=== PATIENT | male | born 1950 | race Caucasian/White ===

== ENCOUNTER → 2016-07-03 | Day surgery (SDC) | payer MEDICARE, OTHER ==
[~2016-07-03] VITALS: Ht 185.4 cm; Wt 84.9 kg
[~2016-07-03] MED LIST: ACETAMINOPHEN 1000 MG/100 ML VIAL IV ONE; ACETAMINOPHEN/HYDROcodone 325 MG/7.5 MG TAB PO PRN; AMBI10TA PO; BETAMETHASONE SOD PHOS/ACETATE SUSP 30 MG/5 ML VIAL ONE; BUPIVACAINE/EPINEPHRINE 0.25% PF 30 ML VIAL ONE; CHOL50008 PO; COQ-100C2 PO; CYAN25003 SL; DEXAMETHASONE SOD PHOS 4 MG/ML VIAL ONE; DO NOT ADM ANY ANTICOAGULANT DRUGS XX PRN; GELATIN 12 MM/7 MM FOAM ONE; GENTAMICIN SULFATE 80 MG/2 ML VIAL ONE; HYDR-3288 PO; INSULIN HUMAN REGULAR 1,000 UNITS/10 ML VIAL SQ PRN; KETOROLAC TROMETHAMINE 60 MG/2 ML (IM) VIAL IM ONE; LACTATED RINGER'S 1000 ML INJ 1,000 ML ONE; LACTATED RINGER'S 1000 ML IV SCH; LIDOCAINE 1%/EPINEPHrine 1:100,000 SOLN 30 ML VIAL ONE; LIVA2TAB PO; LOSA50TA PO; MAGN500T4 PO; METOPROLOL TARTRATE 25 MG TAB PO PRN; MIDAZOLAM HCL 2 MG/2 ML VIAL ONE; MORPHINE SULFATE 4 MG/ML INJ IV PUSH PRN; NEXI20CA PO; OMEG12002 PO; ONDANSETRON HCL 4 MG/2 ML VIAL IV PUSH ONE; PHENYLEPH/NS 1000 MCG/10 ML SYR IV ONE; POVIDONE IODINE 7.5% SCRUB 118 ML BOTTLE TOP SCH; PROPOFOL 200 MG/20 ML AMP IV ONE; SODIUM CHLOR 0.9% 1000 ML INJ 1,000 ML IV SCH; SODIUM CHLORID 0.9% 500 ML IV SCH; SODIUM CHLORIDE 5 ML FLUSH BID IVF SCH; SODIUM CHLORIDE 5 ML FLUSH PRN IVF; TRAM50TA PO; ceFAZolin 2 GM PREMIX 50 ML IV SCH; ePHEDrine/NS 50 MG/5 ML SYR IV ONE; fentaNYL CITRATE 250 MCG/5 ML AMP ONE
--- NOTE | 2016-07-03 07:55 | MH ---
cc: APARNA ARIAS DATE OF ADMISSION: 07/03/2016 ADMISSION DIAGNOSIS Herniated nucleus pulposus lumbar spine and lumbar fracture. HISTORY This is a 66 year-old male with significant injury to his back. He sustained a compression fracture at the L3 level, but also has evidence of a disc herniation eccentric to the left extending above the disc space with a severe left L3 radiculopathy. The patient is having severe back, hip and leg pain with severe weakness of the left leg. He presents for surgical treatment. PAST MEDICAL HISTORY, SOCIAL HISTORY, FAMILY HISTORY, REVIEW OF SYSTEMS See attached notes. PHYSICAL EXAMINATION GENERAL: This is a 66-year-old male in moderate distress with his back, left hip and leg. HEENT: Normocephalic, atraumatic. Pupils equal, round and reactive to light and accommodation. Extraocular motions intact. NECK: Supple. CHEST: Clear. HEART: Regular rate and rhythm. ABDOMEN: Soft and nontender. Normoactive bowel sounds. MUSCULOSKELETAL: Thoracolumbar spine restricted motion, pain with range of motion. Straight leg raising is positive on the left. There is moderate weakness of the left quadriceps compared to the right. Sensation is altered in the left thigh. Mild weakness also sustained of the left anterior tibialis. INVESTIGATIVE STUDIES Shows evidence of a large disc herniation centrally into the left L2-3 creating significant left L3 stenosis and lateral recess stenosis. There may be some compression of the exiting L2 nerve root as the disc extended above the disc space, as well as below the disc space. There is evidence of a recent fracture at the L3 level with superior end plate compression. IMPRESSION 1. Herniated nucleus pulposus L2-3 central, left, extruded. 2. Compression fracture of L3. PLAN Kyphoplasty of L3, lumbar laminectomy L2, L3, lateral recess decompression, resection of herniated nucleus pulposus, use of dilation port and microscope. CONSENT The risks with surgery including, infection, bleeding, loss of motion, continued pain, need for further surgery, neurologic and vascular injury, the patient understands these issues and wishes to press on with surgery as outlined above. MD ARACELI Lyons/ANDREAS /8:24 PM /8:20 AM
[2016-07-03 11:08] VITALS: BP 177/89; PULSE 81; RESP 18; TEMP 98; O2SAT 98
--- NOTE | 2016-07-03 16:57 | PD.OP ---
cc: Eric Vila MD Operative Report Date of Surgery: Jul 03, 2016 Preoperative Diagnosis: Herniated nucleus pulposis L2-3, left, sequestered. Lumbar spinal stenosis, L2-3. Status post lumbar laminectomy L3 4, L4 5, L5-S1, remote. Compression fracture of L3, subacute Postoperative Diagnosis: Same Procedure: Bilateral lumbar laminectomy from the left L2, L3 with lateral recess decompression and resection herniated nucleus pulposis. Kyphoplasty of L3. Use of dilation port and microscope Anesthesia: Gen. Surgeon: Eric Vila Site Lead(s): MYLES Young Operation and Findings: EBL: 75 cc INDICATION: Patient is a 66-year-old male who fell last summer and has been having progressive back pain since that time. He fell again in May and developed acute onset of weakness into the left leg in addition to his low back pain. He's had 3 previous lumbar laminectomies of the low lumbar spine. Studies show evidence of a subacute to early chronic compression fracture of L3 and evidence of a large sequestered disc herniation to the left at and below the disc space at L2-3 with evidence of a high-grade lateral recess stenosis. The patient's developing significant weakness into the left leg. He presents for surgical treatment NOTE: Camila Young PA-C was present for the entire surgical procedure as my assistant toddler teacher. In my medical opinion her skill and care was necessary for the proper management of this patient. PROCEDURE: The patient was brought to the operating room and anesthetized in the supine position. The patient was rolled to a prone position on a Riley frame on a Maninder table. All pressure points were protected in the back was scrubbed with alcohol followed by Hibiclens followed by ChloraPrep and draped sterilely. A timeout was done and antibiotics were given. AP and lateral radiographic images were used to identify the proper levels and perform skin markings. We started from the left side at the 23 level. A paramedian incision was made and an off-midline fascial incision was made. A dilating system was placed down to the interlaminar space and held provisionally to the side of the table. The microscope was brought into the field. A high-speed bur under the microscope was used to perform a partial bilateral laminectomy from that side. A lateral recess decompression extending below the disc space was accomplished using straight and angled Kerrison punches. A partial medial facetectomy was accomplished. There was evidence of a large sequestered disc herniation adjacent to the pedicle of L3 creating significant left L3 nerve root compression. We extended across midline for a partial bilateral decompression which was now very satisfactory. There was a moderate to high-grade spinal stenosis in addition to the disc herniation at that level. The crossing and exiting nerve roots were completely decompressed. The wound was irrigated copiously. A small piece of Gelfoam with Celestone was placed into the epidural space. Hemostasis was controlled. The deep fascia was approximated with interrupted 0 Vicryl. Under biplanar fluoroscopy, the s0cket system was utilized for the kyphoplasty. A separate fascial incision was made. Approaching from the left side, an awl was placed through the left L3 pedicle and extending to midline. We placed a separate cannula from the right side through separate fascial incision. A balloon was used to help create a cavity and correct the deformity. This appeared to be a subacute to early chronic fracture. On the back table methylmethacrylate was mixed. After approximately 11 minutes it was injected. We had a good vertebral body fill without evidence of extravasation. The cement was allowed to harden. The tubes were removed. The wound was irrigated and anesthetized. The subcutaneous tissue was sutured with 2-0 Vicryl suture and skin with running intradermal 3-0 Vicryl followed by Dermabond. A field block with local anesthesia was utilized. A sterile dressing was applied. The sponge count and needle counts and instrument counts were all correct. The patient tolerated the procedure well as taken to the recovery room in satisfactory condition. FINDINGS: There was evidence of a subacute to early chronic fracture of L3. There was a severe high-grade stenosis at L2-3 extending to midline. At the end of the procedure, there is no evidence of complication. Eric Vila MD Jul 03, 2016 16:57
--- NOTE | 2016-07-03 17:21 | RADRPT ---
EXAM DATE/TIME: 07/03/2016 15:30 [facility] COMPARISON: No previous studies available for comparison. INDICATIONS : L2-L3 laminectomy. MEDICAL HISTORY : Non-responsive SURGICAL HISTORY : Non-responsive ENCOUNTER: Initial ACUITY: 1 day PAIN SCORE: Non-responsive. LOCATION: Bilateral lumbar spine FINDINGS: Lateral matrix views in the OR reveal a posterior marker directed toward the L2-3 intervertebral disc space with altered space is narrowed and degenerative. CONCLUSION: Posterior marker projecting toward L2-3 disc space Brady Hoyos MD on July 03, 2016 at 17:19 Board Certified Radiologist. This report was verified electronically.
--- NOTE | 2016-07-03 17:22 | RADRPT ---
EXAM DATE/TIME: 07/03/2016 15:30 [facility] COMPARISON: SPINE LUMBAR LATERAL ONLY, July 03, 2016, 15:30. INDICATIONS : L3 kyphoplasty in the operating room. MEDICAL HISTORY : Non-responsive SURGICAL HISTORY : Non-responsive ENCOUNTER: Initial ACUITY: 1 day PAIN SCORE: Non-responsive. LOCATION: Bilateral lumbar spine FINDINGS: Matrix views reveal kyphoplasty L3 vertebral body. CONCLUSION: Kyphoplasty L3 Brady Hoyos MD on July 03, 2016 at 17:20 Board Certified Radiologist. This report was verified electronically.
[2016-07-03 18:55] VITALS: BP 127/79; PULSE 74; RESP 18; TEMP 97; O2SAT 96
== END | disposition home or self-care (01) ==
LOC: HSDC 10:03
PROVIDERS: ATTEND Orthopaedic Surgery Orthopaedic Surgery of the Spine
DX: M51.26 Other intervertebral disc displacement, lumbar region (principal); S32.030A Wedge compression fracture of third lumbar vertebra, initial encounter for closed fracture; M48.06 Spinal stenosis, lumbar region; I10 Essential (primary) hypertension; E78.5 Hyperlipidemia, unspecified; W19.XXXA Unspecified fall, initial encounter
CPT/HCPCS: 00630; 22514; 63047; 72020; 72100; 76000; 86850; 86900; 86901; J0131; J0690; J0702; J1100; J1580; J1885; J2250; J2370; J2405; J3010; J7120